=== PATIENT | female | born 1990 | race Caucasian/White ===

== ENCOUNTER 2017-06-11 11:46 | Observation (INO) | payer MEDICAID ==
[~2017-06-11] VITALS: Ht 165.1 cm; Wt 84.1 kg
[2017-06-11] VITALS (14 sets, daily range): BP systolic 110–120; BP diastolic 54–74
[2017-06-11 12:29] LABS: BASOPHILS % (AUTO) 0.1 % (0-1); EOSINOPHILS # (AUTO) 0.3 X10'3 (0-0.9); EOSINOPHILS % (AUTO) 1.8 % (0-6); HEMATOCRIT 37.8 % (35.0-45.0); HEMOGLOBIN 13.1 g/dl (12.0-16.0); LYMPHOCYTES # (AUTO) 0.8 X10'3 (1.1-4.8); LYMPHOCYTES % (AUTO) 4.3 % (21-51); MEAN CORPUSCULAR HEMOGLOBIN 28.8 PG (27.0-31.0); MEAN CORPUSCULAR HGB CONC 34.8 % (33.0-36.5); MEAN CORPUSCULAR VOLUME 82.8 FL (78-98); MEAN PLATELET VOLUME 6.7 FL (7.4-10.4); MONOCYTES # (AUTO) 0.9 X10'3 (0-0.9); MONOCYTES % (AUTO) 4.9 % (2-12); NEUTROPHILS # (AUTO) 15.7 X10'3 (1.8-7.7); NEUTROPHILS % (AUTO) 88.9 % (42-75); PLATELET COUNT 319 X10'3 (140-440); RED BLOOD COUNT 4.56 X10'6 (4.20-5.60); WHITE BLOOD COUNT 17.7 X10'3 (4.5-11.0)
[2017-06-11 12:44] LABS: ALANINE AMINOTRANSFERASE 29 U/L (12-78); ALBUMIN 3.9 G/DL (3.4-5.0); ALBUMIN/GLOBULIN RATIO 0.9 (1.1-1.5); ALKALINE PHOSPHATASE 74 IU/L (46-116); AMYLASE 36 U/L (25-115); ANION GAP 12 (8-16); ASPARTATE AMINO TRANSFERASE 17 U/L (10-37); BILIRUBIN,TOTAL 0.4 MG/DL (0.1-1.0); BLOOD UREA NITROGEN 10 MG/DL (7-18); BUN/CREATININE RATIO 10.1 (6.6-38.0); CALCIUM 9.3 MG/DL (8.5-10.1); CHLORIDE 101 MMOL/L (99-107); CREATININE 0.99 MG/DL (0.40-0.90); GLUCOSE 137 MG/DL (70-104); LIPASE 139 U/L (73-393); POTASSIUM 3.8 MMOL/L (3.5-5.1); SODIUM 138 MMOL/L (135-145); TOTAL CARBON DIOXIDE 24.9 MMOL/L (24-32); TOTAL PROTEIN 8.4 G/DL (6.4-8.2); eGFR 68 ML/MIN
[2017-06-11 12:48] LABS: HCG SERUM QL NEGATIVE
[2017-06-11] MEDS ORDERED: normal saline 1000ML IV soln IVB ONE (13:05)
[2017-06-11] MEDS ORDERED: ondansetron/PF 4mg/2ml inj IV ONE (13:05)
[2017-06-11] MEDS ORDERED: piperacillin/tazo 3.375gm/50ml 50 ML IV STA (13:56)
[2017-06-11] MEDS ORDERED: morphine 2 MG/ML inj. syringe IV ONE (14:10)
[2017-06-11] MEDS ORDERED: ondansetron/PF 4mg/2ml inj IV PRN ×2 (14:30→17:10)
[2017-06-11] MEDS ORDERED: magnesium hydroxide 30ml (MOM) UD suspension PO PRN (14:30)
[2017-06-11] MEDS ORDERED: acetaminophen 325mg tablet PO PRN (14:30)
[2017-06-11] MEDS ORDERED: morphine 2 MG/ML inj. syringe IV PRN ×3 (14:30→17:10)
[2017-06-11] MEDS ORDERED: mag hydrox/Alum hydrox/simeth 30ml oral suspension PO PRN (14:30)
[2017-06-11] MEDS ORDERED: morphine 4 MG/ML inj SYRINge IV PRN ×2 (14:33→15:30)
[2017-06-11] MEDS: normal saline 1000ml 1,000 ML IV SCH ×2 (15:04→16:00)
[2017-06-11] MEDS ORDERED: morphine 4 MG/ML inj SYRINge IV ONE (15:30)
[2017-06-11] MEDS ORDERED: LIDOcaine 1% 30ml vial 30 ML ONE (16:18)
[2017-06-11] MEDS ORDERED: BUPIVAcaine/PF 2.5 mg/ml (0.25%) 30ml vial ONE (16:18)
[2017-06-11 16:46] LABS: URINE HCG NEGATIVE (NEG)
[2017-06-11] MEDS ORDERED: midazolam 2 mg/2 ml injection ONE (17:01)
[2017-06-11] MEDS ORDERED: fentaNYL /PF 50mcg/ml 5ml ampule ONE (17:02)
[2017-06-11] MEDS ORDERED: ringers solution, lacted 1,000 ML IV ONE (17:06)
[2017-06-11] MEDS ORDERED: hydrALAZINE 20mg/ml inj. IV PRN (17:10)
[2017-06-11] MEDS ORDERED: labetalol 20mg/4ml (5mg/ml) syringe IV PRN (17:10)
[2017-06-11] MEDS ORDERED: meperidine/PF 50mg/ml syringe IV PRN ×2 (17:10)
[2017-06-11] MEDS ORDERED: meperidine/PF 50mg/ml syringe IV ONE (17:10)
[2017-06-11 17:12] LABS: CLARITY,URINE CLEAR (Clear); COLOR,URINE YELLOW (Yellow); GLUCOSE, URINE NEGATIVE (Neg); KETONES,URINE NEGATIVE (Neg); LEUKOCYTE ESTERASE ,URINE NEGATIVE (Neg); NITRITES, URINE POSITIVE (Neg); OCCULT BLOOD,URINE NEGATIVE (Neg); PROTEIN,URINE NEGATIVE (Neg); UA COLLECTION TYPE CLN CATCH MIDSTREAM; UROBILINOGEN,URINE 0.2 E.U/dL (0.2-1.0)
[2017-06-11 17:23] LABS: RBC,URINE NONE SEEN /HPF (0-2); WBC,URINE 0-4 /HPF (0-4)
[2017-06-11 17:24] LABS: BACTERIA,URINE 1+ /HPF (Neg); MUCUS STRANDS NONE SEEN /LPF (Neg); SQUAMOUS EPITHELIAL CELL,UR NONE SEEN /LPF (FEW)
[2017-06-11] MEDS ORDERED: sevoflurane 250ml liquid IH ONE (17:30)
[2017-06-11] MEDS ORDERED: propofol inj 20 ML IV ONE (17:46)
[2017-06-11] MEDS ORDERED: LIDOcaine 1%/PF (10mg/ml) 5ml vial ONE (17:46)
[2017-06-11] MEDS ORDERED: dexamethasone sod phosphate 4mg/ml inj. ONE (17:46)
[2017-06-11] MEDS ORDERED: ondansetron/PF 4mg/2ml inj ONE (17:47)
[2017-06-11] MEDS ORDERED: ceFOXitin 1000 MG inj ONE ×2 (17:47)
[2017-06-11] MEDS ORDERED: rocuronium 10mg/ml inj IV ONE (17:47)
[2017-06-11] MEDS ORDERED: glycopyrrolate 0.2mg/ml inj ONE (18:16)
[2017-06-11] MEDS ORDERED: neostigmine methylsulfate 1 MG/ML 10ml vial ONE (18:16)
[2017-06-11] MEDS ORDERED: HYDROcodone/acetaminophen 10/325mg tab PO PRN (18:40)
[2017-06-11] MEDS ORDERED: HYDROcodone/acetaminophen 5mg/325mg tablet PO PRN (18:40)
[2017-06-11] MEDS: piperacillin/tazo 3.375gm/50ml 50 ML IV SCH (20:00)
[2017-06-12] VITALS: BP 107/58
[2017-06-12] MEDS: piperacillin/tazo 3.375gm/50ml 50 ML IV SCH ×3 (02:23→13:02)
[2017-06-12] MEDS: normal saline 1000ml 1,000 ML IV SCH ×2 (02:28→13:02)
[2017-06-12 04:00] VITALS: BP 100/48
[2017-06-12 05:39] LABS: BASOPHILS % (AUTO) 0 % (0-1); EOSINOPHILS # (AUTO) 0.2 X10'3 (0-0.9); EOSINOPHILS % (AUTO) 1.3 % (0-6); HEMOGLOBIN 11.6 g/dl (12.0-16.0); LYMPHOCYTES # (AUTO) 0.7 X10'3 (1.1-4.8); MEAN CORPUSCULAR HEMOGLOBIN 28.5 PG (27.0-31.0); MEAN CORPUSCULAR HGB CONC 34.2 % (33.0-36.5); MEAN CORPUSCULAR VOLUME 83.4 FL (78-98); MEAN PLATELET VOLUME 7.4 FL (7.4-10.4); MONOCYTES # (AUTO) 0.7 X10'3 (0-0.9); NEUTROPHILS # (AUTO) 15.1 X10'3 (1.8-7.7); NEUTROPHILS % (AUTO) 90.7 % (42-75); PLATELET COUNT 261 X10'3 (140-440); RED BLOOD COUNT 4.07 X10'6 (4.20-5.60); RED CELL DISTRIBUTION WIDTH 14.1 % (11.5-14.5); WHITE BLOOD COUNT 16.6 X10'3 (4.5-11.0)
[2017-06-12 07:36] VITALS: BP 108/56
[2017-06-12] MEDS ORDERED: NO HOME MEDS (07:46)
[2017-06-12 11:42] VITALS: BP 97/49
[2017-06-12] MEDS ORDERED: lactobacillus rhamnosus 10,000 MMU CELLS/CAPSULE PO SCH (20:00)
== END 2017-06-12 19:10 | disposition home or self-care (01) ==
LOC: ER 11:48 → ED HOLD 14:26 → SUR 3N 17:48
PROVIDERS: ADMIT Family Medicine; ATTEND Family Medicine
DX: K35.80 Unspecified acute appendicitis (principal); R18.8 Other ascites; K38.1 Appendicular concretions
CPT/HCPCS: 36415; 44970; 74176; 80053; 81001; 81025; 82150; 83690; 84703; 85025; 85610; 87070; 87088; 96365; 96375; 96376; 99285; G0378; J0694; J1100; J2001; J2175; J2250; J2270; J2405; J2543; J2704; J2710; J3010; J3490; J7030; J7120; A7000

== ENCOUNTER 2022-09-26 11:14 | Emergency (ER) | payer MEDICAID ==
[~2022-09-26] VITALS: Ht 160 cm; Wt 81.4 kg
[~2022-09-26 11:14] MED LIST: NO HOME MEDS
[2022-09-26 11:25] VITALS: BP 114/70
[2022-09-26] MEDS ORDERED: HYDR28CR14 TOP ×2 (12:03→12:29)
[2022-09-26] MEDS ORDERED: PRED20TA PO ×2 (12:03→12:29)
== END 2022-09-26 12:29 | disposition home or self-care (01) ==
LOC: ER 11:14
DX: L23.7 Allergic contact dermatitis due to plants, except food (principal)
CPT/HCPCS: 99283

== ENCOUNTER 2023-06-03 21:48 | Emergency (ER) | payer MEDICAID ==
[~2023-06-03] VITALS: Ht 154.9 cm; Wt 81.0 kg
[~2023-06-03 21:48] MED LIST changes: +HYDR28CR14 TOP; +PRED20TA PO
[2023-06-03 21:52] VITALS: BP 118/72; PULSE 75; RESP 18; TEMP 98.3; O2SAT 100
[2023-06-03] MEDS: methylPREDNISolone sod succ 125mg/2ml vial IM ONE (23:11)
[2023-06-03] MEDS: diphenhydrAMINE 50 mg/ml inj IM ONE (23:11)
== END 2023-06-03 23:17 | disposition home or self-care (01) ==
LOC: ER 21:48
DX: L23.7 Allergic contact dermatitis due to plants, except food (principal); Z79.899 Other long term (current) drug therapy
CPT/HCPCS: 96372; 99284; J1200; J2930

== ENCOUNTER 2023-06-26 08:44 | Emergency (ER) | payer MEDICAID ==
[~2023-06-26] VITALS: Ht 160 cm; Wt 82.6 kg
[2023-06-26 08:47] VITALS: BP 115/76; PULSE 69; RESP 16; TEMP 98.4; O2SAT 100
[2023-06-26] MEDS ORDERED: PRED20TA PO (09:56)
[2023-06-26] MEDS ORDERED: DIPH25CA83 PO (09:56)
[2023-06-26] MEDS ORDERED: KEN0.1O TOP (09:56)
[2023-06-26] MEDS: diphenhydrAMINE 50 mg/ml inj IM ONE (10:25)
[2023-06-26] MEDS: dexamethasone sod phosphate 10mg/ml inj IM STA (10:25)
== END 2023-06-26 10:35 | disposition home or self-care (01) ==
LOC: ER 08:44
DX: L23.9 Allergic contact dermatitis, unspecified cause (principal); Z79.899 Other long term (current) drug therapy
CPT/HCPCS: 96372; 99284; J1100; J1200

== ENCOUNTER 2024-12-26 18:33 | Emergency (ER) | payer SELFPAY ==
[~2024-12-26] VITALS: Ht 165.1 cm; Wt 81.8 kg
[~2024-12-26 18:33] MED LIST changes: +DIPH25CA83 PO
[2024-12-26 18:51] VITALS: BP 113/71; PULSE 82; TEMP 98.8; O2SAT 98
--- NOTE | 2024-12-26 19:52 | RADIOLOGY REPORT ---
EXAM: DI SHOULDER, COMPLETE (MIN 2 VWS) HISTORY: SHOULDER PAIN COMPARISON: None TECHNIQUE: Multiple images of the right shoulder. FINDINGS: 2 cm lobulated calcium- hydroxyapatite deposition at the rotator cuff attachment sites. No fracture or dislocation. Joint space is well maintained. IMPRESSION: 1. No acute osseous abnormality. 2. Bulky calcific tendinosis - Tendonitis of the rotator cuff.
--- NOTE | 2024-12-26 20:54 | Physician Documentation ---
History of Present Illness ~ Chief Complaint: Shoulder pain Stated Complaint: SHOULDER PAIN Time Seen by MD: 20:29 Primary Medical Doctor: NONE HPI This 34-year-old female presents to the ED with 2-3 weeks of right shoulder pain. She denies any injury. States that she has decreased range of motion has a hard time getting her arm above her shoulders.. Tetanus within 5 years?: Yes Medication Reconciliation Allergies: Coded Allergies: No Known Allergies (Unverified , 06/03/23) Scheduled Diphenhydramine HCl (Benadryl), 2 CAP PO HS Hydrocortisone (hydrocortisone 1% cream), 1 APPLIC TOP Q12H Hydrocortisone (hydrocortisone 1% cream), 1 APPLIC TOP Q12H Prednisone* (Prednisone*), 1 TAB PO DAILY Miscellaneous Medications Home Med List (No Home Medications), (Reported) Past Medical History Past Medical History: No Pertinent History Past Surgical History: noncontributory Alcohol Use: None Drug Use: none Lives with: Family Lives In: Home Review of Systems All Other Systems at this time: Reviewed and Negative ROS As stated above in the HPI, otherwise all systems are reviewed and negative. Physical Exam Vital Signs: Temperature: 98.8, Source: Oral, Heart Rate: 82, Respiratory Rate: 14, BP: 113/71, Pulse Oximetry: 98, Weight: 81.820 Physical Exam General: Alert, no apparent distress. Cardiovascular: Regular rate and rhythm, no murmurs. Gastrointestinal: Soft, nontender, nondistended. Bowels sounds present. Extremities: Decreased range of motion right shoulder positive drop-arm test Neurologic: Oriented x4. Psychiatric: Normal mood and affect. Skin: Normal color, warm and dry. No edema, no ecchymosis. Progress Results/Orders Results/Orders Completed Orders - JAY GOODRICH NP Ketorolac Trometh 30mg/Ml Vial (Toradol (12/26/24 20:55) Medications Received in ER Medications (Trade) Dose Ordered Sig/Milo Route PRN Reason Start Time Stop Time Status Last Admin Dose Admin (Toradol inj. 30mg/ml) 30 mg ONCE ONCE IM 12/26/24 20:55 12/26/24 20:56 DC 12/26/24 21:19 30 MG Vital Signs 12/26/24 12/26/24 18:51 21:19 Temp 98.8 Pulse 82 Resp 14 16 B/P (MAP) 113/71 Pulse Ox 98 Medical Decision Making Findings Patient's x-ray does not show any signs of fracture noted I expected to. However I would do make note of what appears to be a rotator cuff tendinitis for. I am recommending that she follows up with the primary care and obtain a referral to physical therapy. Differential Dx:Considerations: Include: AC separation, Adhesive capsulitis, arthritis, Bicipital tendonitis, Calcific tendonitis, Cervical disc disease, Contusion, Dislocation, Fracture: Humerus, Fracture: Scapula, Fracture: Clavicl e, Gallbladder Disease, Hematoma, Impingement syndrome, Myocardial infarction, Neurovascular Injury, Rotator cuff injury, SC dislocation, Sprain, Subacromial bursitis, other Departure Disposition: HOME / SELF CARE / HOMELESS Impression: Primary Impression: Shoulder pain Additional Impression: Tendinitis of shoulder Discharge Instructions: Shoulder Pain, [id number] Additional Instructions: As I instructed do a recommend taking ibuprofen and to follow up with your primary care to obtain a referral to go to physical therapy. Referrals: NO PRIMARY CARE PROVIDER (PCP) Signature Scribe Signature: g Attestation: Scribed for Jay Goodrich Back Line Cook by Jay Hernandez NP . 12/26/24 23:03 JAY GOODRICH NP Dec 26, 2024 20:54
[2024-12-26 21:19] VITALS: RESP 16
[2024-12-26] MEDS: ketorolac trometh 30MG/ML vial 30 MG/ML VIAL IM ONE (21:19)
== END 2024-12-26 21:38 | disposition home or self-care (01) ==
LOC: ER 18:34
DX: M77.8 Other enthesopathies, not elsewhere classified (principal); M25.511 Pain in right shoulder; Z79.899 Other long term (current) drug therapy
CPT/HCPCS: 73030; 96372; 99283; J1885